=== PATIENT | male | born 1950 | race Caucasian/White ===

== ENCOUNTER 2016-03-15 06:07 | Day surgery (SDC) | payer OTHER ==
[2016-03-14 11:05] VITALS: Ht 182.9 cm; Wt 90.0 kg
--- NOTE | 2016-03-14 16:34 | PREOPHP ---
DATE OF ADMISSION: 03/15/2016 HISTORY OF PRESENT ILLNESS: This 65-year-old patient is admitted for elective cataract surgery of t he right eye. The patient has had progressive deterioration of vision in both eyes and 2-1/2 months ago underwent cataract surgery of the left eye with good visual result. The patient does have a hi story of high myopia as well as chronic open angle glaucoma for the past 2 to 3 years. The patient' s systemic history is also positive for benign prostatic hypertrophy and hypercholesterolemia. CURRENT MEDICATIONS INCLUDE: 1. Cosopt and latanoprost eyedrops. 2. Simvastatin. 3. Tamsulosin (discontinued 1 week prior to surgery). ALLERGIES: THERE ARE NO KNOWN ALLERGIES. PHYSICAL EXAMINATION: The visual acuity with best correction is 20/40 in the right eye and 20/25 in the left eye. Slit lamp examination reveals nuclear sclerotic and posterior subcapsular cataract i n the right eye. The left eye has a posterior chamber intraocular lens in appropriate position. Th e macular region appears within normal limits and patient has previously had evaluation to determine what the potential visual outcome would be and was found to have a best corrected visual acuity is 20/25 in each eye. In addition, the surgery is being performed because the patient remains with a h igh myopia in the right eye and is emmetropic and is unable to function with both eyes simultaneousl y. PLAN: Cataract surgery will resolve that problem. The patient understands this and agrees to proce ed with surgery. Dictated By: ALISIA GERBER/ANNALISE Conf#: [id number] DID#: [id number]
[2016-03-15] VITALS (8 sets, daily range): BP systolic 127–148; BP diastolic 75–86; PULSE 62–68; RESP 14–19
[~2016-03-15] VITALS: Ht 182.9 cm; Wt 90.0 kg
[~2016-03-15 06:07] MED LIST: DORZ10DR6 BOTH EYES; LATA2.5D2 BOTH EYES; SIMV10TA6 PO; TAMS0.4C2 PO
[2016-03-15] MEDS ORDERED: DICLOFENAC 0.1% 2.5 ML OPH OPER SCH (08:00)
[2016-03-15] MEDS ORDERED: TROPICAMIDE 1% 2 ML OPH OPER SCH (08:00)
[2016-03-15] MEDS ORDERED: CIPROFLOXACIN 0.3% 2.5 ML OPH OPER SCH (08:00)
[2016-03-15] MEDS ORDERED: CYCLOPENTOLATE/PHENYLEPH 2 ML OPH OPER SCH (08:00)
[2016-03-15 08:52] LABS: BASOPHILS % 0.6 % (0.0-2.0); EOSINOPHILS # 0.5 10^3/ul (0.0-0.5); EOSINOPHILS % 6.5 % (0.0-7.0); HEMATOCRIT 44.5 % (42.0-52.0); HEMOGLOBIN 15.6 g/dl (14.0-18.0); LYMPHOCYTES # 2.4 10^3/ul (0.8-2.9); LYMPHOCYTES % 32.3 % (15.0-51.0); MEAN CORPUSCULAR VOLUME 94.2 fl (82.0-101.0); MONOCYTE # 0.5 10^3/ul (0.3-0.9); MONOCYTES % 7.3 % (0.0-11.0); NEUTROPHILS % 53.3 % (39.0-77.0); PLATELET COUNT 261 10^3/UL (140-440); RED BLOOD COUNT 4.72 10^6/ul (4.70-6.10); RED CELL DISTRIBUTION WIDTH 12.9 % (11.5-14.5); UNCORRECTED WBC 7.4 10^3/ul (4.8-10.8); WHITE BLOOD COUNT 7.4 10^3/ul (4.8-10.8)
[2016-03-15 08:55] LABS: CALCIUM 9.5 mg/dl (8.4-10.2); INR 0.86; PROTIME 11.7 Sec (12.2-14.2); PT RATIO 0.9
[2016-03-15 08:56] LABS: PARTIAL THROMBOPLASTIN TIME 31.5 Sec (25.0-35.0)
[2016-03-15 08:57] LABS: CREATININE 0.83 mg/dl (0.61-1.24); POTASSIUM 4.4 mmol/L (3.5-5.1)
[2016-03-15 09:11] LABS: CONDITION 1
[2016-03-15] MEDS ORDERED: LIDOCAINE 2% (SDV) 5 ML INJ ONE (09:24)
[2016-03-15] MEDS ORDERED: PROPOFOL 20 ML ONE (09:24)
[2016-03-15] MEDS ORDERED: EPHEDrine SULFATE 50 MG/5 ML SYG IV PRN (09:30)
[2016-03-15] MEDS ORDERED: ATROPINE 1 MG/10 ML SYRINGE IV PRN (09:30)
[2016-03-15] MEDS ORDERED: hydrALAzine 20 MG INJ IV PRN (09:30)
[2016-03-15] MEDS ORDERED: OXYCODONE/ACETAMINOPHEN (5/325) TAB PO PRN ×2 (09:30)
[2016-03-15] MEDS ORDERED: ONDANSETRON 4 MG INJ IV PRN (09:30)
[2016-03-15] MEDS ORDERED: MEPERIDINE 25 MG INJ IV PRN (09:30)
[2016-03-15] MEDS ORDERED: morphine (1 MG/ML) 10ML SYRINGE IV PRN ×3 (09:30)
[2016-03-15] MEDS ORDERED: DIPHENHYDRAMINE 50 MG INJ IV PRN (09:30)
[2016-03-15] MEDS ORDERED: MIDAZOLAM 1 MG/ML 2 ML INJ IV PRN (09:30)
[2016-03-15] MEDS ORDERED: HYDROmorphONE (0.2 MG/ML) 10ML SYG IV PRN ×3 (09:30)
[2016-03-15] MEDS ORDERED: FENTAnyl 50 MCG/ML VIAL IV PRN ×2 (09:30)
[2016-03-15] MEDS ORDERED: LABETALOL HCL 20MG INJ IV PRN (09:30)
[2016-03-15] MEDS ORDERED: LIDOCAINE 4% (MPF) 5 ML INJ ONE (09:43)
[2016-03-15] MEDS ORDERED: LIDOCAINE 1% (MPF) 10 ML INJ ONE (09:43)
[2016-03-15] MEDS ORDERED: CARBACHOL 0.01% 1.5 ML OPH INJ ONE (09:43)
[2016-03-15] MEDS ORDERED: DEXAMETHASONE 4 MG/ML 1 ML INJ ONE (09:43)
[2016-03-15] MEDS ORDERED: HYALURONATE/CHONDROITIN 1ML OPH INJ ONE ×2 (09:43→10:51)
[2016-03-15] MEDS ORDERED: CEFAZOLIN 1 GM INJ INJ ONE (10:21)
--- NOTE | 2016-03-15 11:58 | OPR ---
DATE OF OPERATION: 03/15/2016 PREOPERATIVE DIAGNOSIS: Cataract, right eye. POSTOPERATIVE DIAGNOSIS: Cataract, right eye. OPERATION PERFORMED: Cataract extraction with lens implant, right eye. SURGEON: Alisia Olsen MD ANESTHESIOLOGIST: Dr. Levine. ANESTHESIA: Local standby. PROCEDURE: The patient was brought to the operating room and placed on the table with an IV in plac e and the patient attached to an labor relations consultant. Oxygen was given via face mask. After some intravenous sedation was administered, local anesthesia was given using Xylocaine 2% with epinephrine, mixed with Marcaine 0.5%. This was given in a lid block and retrobulbar injection. The patient was then prepped and draped in the usual sterile manner. A wire lid speculum was inserted between the lids of the right eye. A Superblade was used to enter t he anterior chamber at the corneoscleral limbus at the 10:30 o'clock position. A separate incision w as made using a 3.0-mm keratome which entered the corneoscleral junction at the 12 o'clock position. Through this 3-mm opening, an irrigating cystotome was introduced into the anterior chamber. The ch radha was filled with Viscoat and an anterior capsulotomy was performed. Balanced salt solution was then used for hydrodissection of the lens. A phacoemulsification handpiece was then brought into th e field and introduced into the anterior chamber. The lens nucleus was emulsified using a deep groov e and cracking the nucleus into quadrants. Following this, each quadrant was aspirated and emulsifie d at the pupillary margin. Following half following the phacoemulsification, it was noted that the pupil had shrunk down to a s maller size, making safe removal of the lens cortical material and epinuclear material more difficul t. It was therefore decided to expand the pupil using and I-ring. Additional DisCoVisc was injecte d into the anterior chamber and then the I-ring was injected into the anterior chamber and placed ap propriately within the pupil space to expand the pupil. After this was completed, the irrigation/aspiration handpiece was brought to the field, introduced i nto the posterior chamber, and the lens cortical material was removed. When this was completed, duyen tional Viscoat was injected into the anterior and posterior chambers. The 3-mm opening had its internal lips enlarged, and then the posterior chamber intraocular lens yoel suring 15.5 diopters (Bausch and Lomb model LI61AO) was then injected into the posterior chamber usi ng the lens injector system. After the leading haptic was introduced into the capsular bag and the l ens optic was present in the center of the eye, the injector was removed and the trailing haptic was grasped with non-toothed forceps and introduced into the capsular fold superiorly. A Sinskey hook w as then used to rotate the intraocular lens so that the lips were oriented in the horizontal meridia n. One 10-0 nylon suture was placed across the wound. Following insertion of the lens implant, the I-ring was removed from the anterior chamber Prior to tying, the irrigation/aspiration handpiece was reintroduced into the anterior chamber to re move the Viscoat. Miochol was instilled to constrict the pupil, and then the 10-0 nylon suture was t ied. The ends were cut short and then the knot was buried. Then, 0.5 mL of dexamethasone and 0.5 mL of Ancef were injected into the sub-Tenon space in the infe rior fornix. Ciloxan drops were then placed on the surface of the eye. The speculum was removed and a patch was applied. The patient then left the operating room in satisfactory condition. Dictated By: ALISIA GERBER/ANNALISE Conf#: [id number] DID#: [id number]
--- NOTE | 2016-03-16 14:49 | RADRPT ---
Vent Rate: 55 bpm RR Interval: 0 msec DC Interval: 180 msec QRS Duration: 98 msec QT Interval: 402 msec QTC Interval: 384 msec P-R-T [place]: 73 - 43 - 55 degrees Sinus bradycardia Otherwise normal ECG Electronically Signed By: Paulino Spangler [id number]
== END 2016-03-15 12:25 | disposition home or self-care (01) ==
LOC: SDS 06:07
PROVIDERS: ATTEND Ophthalmology
DX: H25.11 Age-related nuclear cataract, right eye (principal); N40.0 Benign prostatic hyperplasia without lower urinary tract symptoms; E78.00 Pure hypercholesterolemia, unspecified
CPT/HCPCS: 66984; 80048; 85025; 85610; 85730; 93005; J0690; J1100; V2632; Z7512; Z7610

== ENCOUNTER 2016-09-23 07:14 | Day surgery (SDC) | payer OTHER ==
[2016-09-23] VITALS (10 sets, daily range): BP systolic 105–139; BP diastolic 71–81; PULSE 60–72; RESP 15–20; Ht 182.9 cm; Wt 91.0 kg
[~2016-09-23] VITALS: Ht 182.9 cm; Wt 91.0 kg
[2016-09-23] MEDS ORDERED: SOD CHLORIDE 0.9% 1,000 ML IV SCH (07:30)
[2016-09-23] MEDS ORDERED: CEFAZOLIN 2 GM/50 ML (PMX) 50 ML IVPB ONE (07:30)
[2016-09-23] MEDS ORDERED: UMEC1DIS PO (08:00)
[2016-09-23] MEDS ORDERED: BUPIVACAINE 0.5% (SDV) 30 ML INJ ONE (08:11)
[2016-09-23] MEDS ORDERED: LIDOCAINE 2% (MDV) 20 ML INJ ONE (08:11)
[2016-09-23] MEDS ORDERED: FENTAnyl 50 MCG/ML VIAL ONE (09:28)
[2016-09-23] MEDS ORDERED: MIDAZOLAM 1 MG/ML 2 ML INJ ONE (09:28)
[2016-09-23] MEDS ORDERED: LIDOCAINE 2% (SDV) 5 ML INJ ONE (09:57)
[2016-09-23] MEDS ORDERED: PROPOFOL 20 ML ONE (09:57)
--- NOTE | 2016-09-23 09:57 | OPR ---
Date/Time of Note Date/Time of Note DATE: 09/23/16 TIME: 09:55 Operative Report Procedure Date: Sep 23, 2016 Preoperative Diagnosis right perianal mass Postoperative Diagnosis same Operation Performed 1. right perianal mass resection with 2 cm mass 2 cm incision 2. localized adjacent tissue transfer with the use of skin flaps 4 sq cm defect 3. therapeutic injection of subcutaneous marcaine cpt code [id number] Surgeon: Jasmyn PERSAUD Specimens right perianal mass Indications This is a 66-year-old male with a right perianal mass. He requires surgical excision. Risks alternatives benefits and percent were discussed the patient. Patient expresses understanding and consents to the operation Procedure Description Patient is taken to the OR and prepped and draped in usual sterile fashion. Surgical timeout was performed. IV antibiotics were given. Elliptical incision around the mass is made with a 15 blade after local anesthesia is infiltrated around the mass. Dissection cautery was carried onto the mass and circumferentially excised. There is good hemostasis. Due to the tissue defect localized adjacent tissue transfer with these skin flaps was performed. Multilayer closure with interrupted 3-0 Vicryl and skin pepito used. Dressings were applied. Jasmyn PERSAUD Sep 23, 2016 09:57
[2016-09-23] MEDS ORDERED: CEFAZOLIN 1 GM INJ ONE (09:58)
[2016-09-23] MEDS ORDERED: HYDROCODONE/APAP (5/325) TAB PO ONE (10:00)
== END 2016-09-23 12:00 | disposition home or self-care (01) ==
LOC: SDS 07:14
PROVIDERS: ATTEND Surgery
DX: K62.0 Anal polyp (principal); E66.9 Obesity, unspecified; Z68.27 Body mass index [BMI] 27.0-27.9, adult
CPT/HCPCS: 46924; 88307; J0690; J2250; J3010; Z7512; Z7610